=== PATIENT | female | born 1970 | race Caucasian/White ===

== ENCOUNTER 2018-05-19 19:34 | Inpatient (IN) | payer BC ==
[~2018-05-19] VITALS: Ht 157.5 cm; Wt 89.4 kg
--- OUTSIDE RECORDS SUMMARY | 2018-05-19 19:36 | XMS REPORT | Continuity of Care Document ---
Author Author [facility] Address Unknown Phone Unavailable Problems Problem Status Onset Date Classification Date Reported Comments Source DX: R92.8=OTHER ABNORMAL AND INCONCLUSI Active 05/23/2017 [facility] DX: R92.8=/R92.2=/R92.0= Active 05/30/2016 [facility] BENIGN NEOPLASM OF BREAST Active 12/24/2013 Condition 02/26/2014 [facility] Benign tumor of breast<sup>2</sup> Active 12/24/2013 Problem 06/10/2017 Data migrated from [employer] on 12/08/14. [facility] Adenoma<sup>1</sup> Active Problem 06/10/2017 right breast [facility] Anxiety Active Problem 06/10/2017 [facility] GERD (<span ID="[id number]">Confirmed</span>) Active Problem 06/10/2017 [facility] Hypertension Active Problem 06/10/2017 [facility] Medications Medication Details Route Status Patient Instructions Ordering Provider Order Date Source NEXIUM 40 MG CPDR Active 12/24/2013 [facility] STRATTERA 80 MG CAPS Active 12/24/2013 [facility] WELLBUTRIN XL 300 MG [id number] Active 12/24/2013 [facility] ZYRTEC ALLERGY TABS Active 12/24/2013 [facility] NEXIUM 40 MG CPDR Active 12/24/2013 [facility] WELLBUTRIN XL 300 MG [id number] Active 12/24/2013 [facility] Allergies, Adverse Reactions, Alerts Substance Category Reaction Severity Reaction type Status Date Reported Comments Source NKFA Assertion Propensity to adverse reactions to food Active [facility] Immunizations Immunization Date Given Site Status Last Updated Comments Source Results Order Name Results Value Reference Range Date Interpretation Comments Source Breast Mammo Diag WILY incl CAD MA Breast Mammo Diag WILY incl CAD MA CLINICAL: /12 Mo Follow Up bilateral breast reduction and benign tumor removal. Current study was evaluated with a Computer Aided Detection (CAD) system. COMPARISON:Comparison is made to exams dated: 06/15/2016 mammogram, 05/31/2015 mammogram, 11/24/2013 mammogram, 10/15/2012 mammogram, 05/31/2015 ultrasound, and 02/16/2014 localization - [facility]. TECHNIQUE: Mammographic views were obtained using digital acquisition. [employer] Version 1.3 was utilized for computer aided detection. FINDINGS: The tissue of both breasts is heterogeneously dense, which could obscure detection of small masses. The patient is status post reduction both breasts. Both breasts have post- operative findings. There are benign calcifications in both breasts. No significant masses, calcifications, or other findings are seen in either breast. There has been no significant interval change. Breast ultrasound was offered to the patient but was declined. IMPRESSION: BENIGN There is no mammographic evidence of malignancy. A 1 year screening mammogram is recommended.(06/08/2018) The results were reviewed with the patient. This exam was interpreted at [id number] for [facility]. Geraldine Marquis M.D. jt/:06/07/2017 16:17:41 Hammerer Tab(s): Jazmin Bacon [facility] letter sent: BI-RADS 1/2 Mammogram BI-RADS: 2 Benign 06/07/2017 - - Read by: Geraldine Marquis MD Dictated Date/time: 06/07/17 16:17 Electronically Signed by: Geraldine Marquis MD 06/07/17 16:17 FINAL REPORT [facility] Digital Mammo DX Wily MA Digital Mammo DX Wily MA - DIGITAL MAMMO DX WILY MA BILATERAL DIGITAL DIAGNOSTIC MAMMOGRAM WITH CAD: 06/15/2016 CLINICAL: Right breast benign tumor removal bilateral breast reduction. Current study was evaluated with a Computer Aided Detection (CAD) system. Comparison is made with mammogram(s) dated 05/31/15 - 08/30/06. The tissue of both breasts is heterogeneously dense, which could obscure detection of small masses. The patient is status post reduction both breasts. Both breasts have post- operative findings. There are benign calcifications in both breasts. No significant masses, calcifications, or other findings are seen in either breast. There has been no significant interval change. Breast ultrasound was offered to the patient but was declined. IMPRESSION: BENIGN There is no mammographic evidence of malignancy. A 1 year screening mammogram is recommended. The results were reviewed with the patient. Geraldine munoz/:06/15/2016 16:19:44 Hammerer Tab: Jazmin Bacon [facility] This exam was dictated and interpreted by [id number] for [facility] [employer]. letter sent: Normal exam Mammogram BI-RADS: 2 Benign 06/15/2016 - - Read by: Geraldine Marquis MD Dictated Date/time: 06/15/16 16:19 Electronically Signed by: Geraldine Marquis MD 06/15/16 16:19 FINAL REPORT [facility] Vital Signs Vital Sign Value Date Comments Source Weight 166 02/26/2014 [facility] Temperature Oral (F) 98.3 F 02/26/2014 [facility] Heart Rate 108 02/26/2014 [facility] Systolic (mm Hg) 140 02/26/2014 [facility] Diastolic (mm Hg) 93 02/26/2014 [facility] Height 62 12/24/2013 [facility] Weight 168 12/24/2013 [facility] Temperature Oral (F) 97.7 F 12/24/2013 [facility] Heart Rate 123 12/24/2013 [facility] Systolic (mm Hg) 161 12/24/2013 [facility] Diastolic (mm Hg) 97 12/24/2013 [facility] Encounters Location Location Details Encounter Type Encounter Number Reason For Visit Attending Provider ADM Date DC Date Status Source [facility] General Surgery 350 Office Visit [id number] Will Mar MD 12/24/2013 12/24/2013 [facility] [place] Lab Report [id number] Will Mar MD 12/25/2013 12/25/2013 [facility] Lab Report [id number] Will Mar MD 02/12/2014 02/12/2014 [facility] General Surgery 350 Office Visit [id number] Will Mar MD 02/26/2014 02/26/2014 [facility] Outpatient [id number] Flaca Zhang 06/15/2016 06/16/2016 [facility] Outpatient [id number] Kami Szymanski 06/07/2017 06/08/2017 [facility] Procedures Procedure Code Date Perfomer Comments Source mammogram 91152 02/20/2014 Completed at [facility] Breast reduction, bilateral [id number] [facility] Epidural anesthesia<sup>1</sup> [id number] [address]
--- OUTSIDE RECORDS SUMMARY | 2018-05-19 19:36 | XMS REPORT | Summary of Care ---
Author Author SUNNI Feldman, MAURICIO Antunez Unknown Address [facility] Phone Unavailable Care Team Providers Care Cereal Supervisor Name Role Phone SUNNI Feldman, MAURICIO Unavailable Unavailable KENNEDI Feldman, PREET Unavailable Unavailable JAME Feldman, PRICILA Unavailable Unavailable KENNEDI BOLAND ID, PREET Silvestre Unavailable Unavailable JULIA Feldman, MONISHA Unavailable Unavailable Cheryl BOLAND, Zachary Unavailable Unavailable TRAN BOLAND, ALFREDO James Unavailable Unavailable Unavailable Unavailable Functional Status Name Dates Details Functional status health issues are not documented Status: Name Dates Details Cognitive status health issues are not documented Status: Problems Name Dates Details Rosacea (695.3, L71.9) Status: Active Encounter for screening for lipoid disorders (V77.91, Z13.220) Status: Active 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, 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 Generalized anxiety disorder (300.02, F41.1) Status: Active Hiatal hernia (553.3, K44.9) Status: Active Nasal septal deviation (470, J34.2) Status: Active Hypertrophy, nasal, turbinate (478.0, J34.3) Status: Active Encounter for routine gynecological examination with Papanicolaou smear of cervix (V72.31, Z01.419) Status: Active Screening for malignant neoplasm of breast (V76.10, Z12.31) Status: Active Cervical cancer screening (V76.2, Z12.4) Status: Active Right foot pain (729.5, M79.671) Status: Active Migraines (346.90, G43.909) Status: Active Breast density (611.79, R92.2) Status: Active Breast microcalcifications (793.81, R92.0) Status: Active 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, M19.049) Status: Active Hot flashes (782.62, R23.2) Status: Active Acid reflux disease (530.81, K21.9) Status: Active Influenza vaccine needed (V04.81, Z23) Status: Active Abnormal mammogram (793.80, R92.8) Status: Active Anxiety (300.00, F41.9) Status: Active Attention-deficit hyperactivity disorder, unspecified type (314.01, F90.9) Status: Active PMDD (premenstrual dysphoric disorder) (625.4, F32.81) Status: Active Essential (primary) hypertension (401.9, I10) Status: Active Major depression, recurrent, chronic (296.30, F33.9) Status: Active GERD (gastroesophageal reflux disease) (530.81, K21.9) Status: Active Acute nonintractable headache, unspecified headache type (784.0, R51) Status: Active Seasonal allergic rhinitis due to pollen (477.0, J30.1) Status: Active Uncontrolled hypertension (401.9, I10) Status: Active Medications Name Dates Details Fluticasone Propionate 50 MCG/ACT Nasal Suspension USE 2 SPRAYS IN EACH NOSTRIL ONCE DAILY Quantity: 1 PREET KOLB M.D. Active 9.9 ML Bottle Multiple Vitamin TABS TAKE 1 TABLET DAILY. * Refills: 0 Active Magnesium TABS TAKE 1 TABLET DAILY * Refills: 0 Active Fish Oil CAPS TAKE 1 CAPSULE DAILY * Refills: 0 Active Vitamin C TABS TAKE 1 TABLET DAILY * Refills: 0 Active Vitamin D TABS TAKE 1 TABLET DAILY * Refills: 0 Active Losartan Potassium-HCTZ 100-25 MG Oral Tablet TAKE 1 TABLET ONCE DAILY. * Quantity: 90 Refills: 1 PREET KOLB M.D. * Start : 18-May-2014 Active Omeprazole 40 MG Oral Capsule Delayed Release TAKE 1 CAPSULE Twice daily 30 minutes before meals * Quantity: 180 Refills: 1 PREET KOLB M.D. * Start : 11-Jun-2014 Active Sertraline HCl - 50 MG Oral Tablet TAKE 1 TABLET BY MOUTH DAILY * Quantity: 90 Refills: 0 PRICILA KILGORE M.D. * Start : 28-Nov-2017 Active Dexmethylphenidate HCl ER 20 MG Oral Capsule Extended Release 24 Hour TAKE 1 CAPSULE DAILY IN THE MORNING. * Quantity: 30 Refills: 0 PRICILA KILGORE M.D. * Start : 19-Dec-2016 Active Azelastine HCl - 0.1 % Nasal Solution USE 1 SPRAY IN EACH NOSTRIL TWICE DAILY. * Quantity: 1 Refills: 2 PREET KOLB M.D. * Start : 25-Dec-2017 Active 30 ML Bottle Allergies and Adverse Reactions Name Dates Details No Known Drug Allergies (Allergy) Status: Active Past Medical History Name Dates Details History of acne (V13.3, Z87.2) Status: Resolved History of backache (V13.59, Z87.39) Status: Resolved History of chest pain (V13.89, Z87.898) Status: Resolved History of earache (V12.49, Z86.69) Status: Resolved History of essential hypertension (V12.59, Z86.79) Status: Resolved History of Impacted cerumen of left ear (380.4, H61.22) Status: Resolved History of Mass of right breast (611.72, N63.10) Status: Resolved History of Masses of both breasts (611.72, N63.10) Status: Resolved History of Multiparity (V61.5, Z64.1) Status: Resolved History of Pain, joint, shoulder (719.41, M25.519) Status: Resolved History of Vitamin D insufficiency (268.9, E55.9) Status: Resolved Personal history of urinary tract infection (V13.02, Z87.440) Status: Resolved Procedures Procedure Dates Details History of Breast Surgery Lumpectomy Completed History of Breast Surgery Reduction Procedure Completed Immunization Name Dates Details Tdap on: Jul-2010 Influenza Lot #: [id number] on: 14-Apr-2014 Fluzone Quadrivalent 0.5 ML Intramuscular Suspension Lot #: [id number] on: 12-May-2015 Fluzone Quadrivalent 0.5 ML Intramuscular Suspension Lot #: [id number] on: 17-Apr-2017 Family History Name Dates Details Family history of Smoking Cigarettes Status: Active Family history of Hyperlipidemia Status: Active Name Dates Details Family history of Smoking Cigarettes Status: Active Family history of Acute Lymphoma Status: Active Family history of Hyperlipidemia Status: Active Family history of Hypertension (V17.49) Status: Active Social History Name Dates Details - Status: Name Dates Details Never smoker Vital Signs Date Test Result Details [id number]-[id number] BP Systolic 117 mm[Hg] Status: BP Diastolic 84 mm[Hg] Status: Height 62 in Status: Weight 190.4375 lb Status: Body Mass Index Calculated 34.83 kg/m2 Status: Body Surface Area Calculated 1.87 m2 Status: Heart Rate 112 /min Status: [id number]-Atv-[id number]:26 Physical Findings 5 Status: Comments: PHQ-9 Adult Depression Screening 69-Utk-606052:11 BP Systolic 130 mm[Hg] Status: Comments: Location: LUE; Position: Sitting BP Diastolic 88 mm[Hg] Status: Comments: Location: LUE; Position: Sitting Height 62 in Status: Weight 193.125 lb Status: Body Mass Index Calculated 35.32 kg/m2 Status: Body Surface Area Calculated 1.88 m2 Status: Heart Rate 83 /min Status: Physical Findings 5 Status: Comments: PHQ-9 Adult Depression Screening Temperature 98.2 f Status: Comments: Method: Temporal Respiration Rate 16 /min Status: Physical Findings 6.4375 Status: Comments: Pain Scale Results Date Description Value Details Results not documented Plan of Care Name Dates Details Planned Observations Planned Goals not documented Planned Encounters Appointment; PRICILA KILGORE M.D. On: 06-Feb-2018 12:00 Interventions Provided Plan* 1. TMJ problem. Needs soft diet, NSAIDS and warm compresses. FU as needed. Instructions Name Dates Details Instructions not documented Encounters Appointment; PREET KOLB M.D. Encounter Diagnosis: Problem not documented On: 18-Jan-2016 10:15 Appointment; LIZETH JENKINS M.D. Encounter Diagnosis: Problem not documented On: 20-Jan-2016 11:30 Appointment; PRICILA KILGORE M.D. Encounter Diagnosis: Problem not documented On: 23-May-2016 15:00 Appointment; PRICILA KILGORE M.D. Encounter Diagnosis: Problem not documented On: 21-Aug-2016 15:30 Appointment; PREET KOLB M.D. Encounter Diagnosis: Problem not documented On: 07-Sep-2016 15:30 Appointment; PREET KOLB M.D. Encounter Diagnosis: Problem not documented On: 09-Oct-2016 15:45 Appointment; PRICILA KILGORE M.D. Encounter Diagnosis: Problem not documented On: 19-Dec-2016 10:00 Appointment; PRICILA KILGORE M.D. Encounter Diagnosis: Problem not documented On: 07-Feb-2017 10:00 Appointment; PRICILA KILGORE M.D. Encounter Diagnosis: Problem not documented On: 16-Apr-2017 15:30 Appointment; PREET KOLB M.D. Encounter Diagnosis: Problem not documented On: 17-Apr-2017 15:45 Appointment; PRICILA KILGORE M.D. Encounter Diagnosis: Problem not documented On: 05-Sep-2017 15:30 Appointment; PRICILA KILGORE M.D. Encounter Diagnosis: Problem not documented On: 26-Nov-2017 15:30 Appointment; PREET KOLB M.D. Encounter Diagnosis: Problem not documented On: 25-Dec-2017 14:45 Appointment; MAURICIO MOELLER M.D. Encounter Diagnosis: Problem not documented On: 01-Jan-2018 13:45
--- OUTSIDE RECORDS SUMMARY | 2018-05-19 19:36 | XMS REPORT | Continuity of Care Document ---
Author Author [facility] Organization [facility] Address Unknown Phone Unavailable Care Team Providers Care Coat Presser Name Role Phone MD Zaid, Will ZABALA Unavailable Insurance Providers Payer name Policy type / Coverage type Policy ID Covered democrat ID Policy Alvarado [employer] Encounters Encounter Performer Location Date Office Visit Will Mar MD [facility] General Surgery 350 Feb 26, 2014 Problems Problem Effective Dates Problem Status BENIGN NEOPLASM OF BREAST Dec 24, 2013 Active Procedures Date Description Comments Dec 24, 2013 smoking status Never smoker Feb 20, 2014 mammogram Completed at [facility] Feb 26, 2014 smoking status Never smoker Medications Medication Instructions Start Date Status NEXIUM 40 MG CPDR Dec 24, 2013 Active STRATTERA 80 MG CAPS Dec 24, 2013 Active WELLBUTRIN XL 300 MG [id number] Dec 24, 2013 Active ZYRTEC ALLERGY TABS Dec 24, 2013 Active Vital Signs Date Description Test Result Dec 24, 2013 height E&M HEIGHT 62 in Dec 24, 2013 weight E&M WEIGHT 168 lb Dec 24, 2013 temperature E&M TEMPERATURE 97.7 deg f Dec 24, 2013 pulse rate E&M PULSE RATE 123 /min Dec 24, 2013 blood pressure, systolic BP SYSTOLIC 161 mm Hg Dec 24, 2013 blood pressure, diastolic BP DIASTOLIC 97 mm Hg Feb 26, 2014 weight E&M WEIGHT 166 lb Feb 26, 2014 temperature E&M TEMPERATURE 98.3 deg f Feb 26, 2014 pulse rate E&M PULSE RATE 108 /min Feb 26, 2014 blood pressure, systolic BP SYSTOLIC 140 mm Hg Feb 26, 2014 blood pressure, diastolic BP DIASTOLIC 93 mm Hg
--- OUTSIDE RECORDS SUMMARY | 2018-05-19 19:36 | XMS REPORT | Summary of Care ---
Author Author [facility] Organization [facility] Address Unknown Phone Unavailable Encounter HQ Mary(FIN) [id number] Date(s): 06/15/16 - 06/15/16 [facility] [address] [place] [address]- [phone] Discharge Disposition: Home or Self Care Attending Physician: Flaca Zhang MD Referring Physician: Flaca Zhang MD Vital Signs No data available for this section Problem List Condition Effective Dates Status Health Status Informant Adenoma(Confirmed)1 Active Anxiety(Confirmed) Active Benign tumor of 12/24/13 Active breast2 GERD Active (gastroesophageal reflux disease)(Confirmed) Hypertension(Confirm Active ed) 1right breast 2Data migrated from [employer] on 12/08/14. Allergies, Adverse Reactions, Alerts Substance Reaction Severity Status NKDA Active NKFA Active Medications No data available for this section Results No data available for this section Immunizations No data available for this section Procedures Procedure Date Related Diagnosis Body Site Breast reduction, bilateral Epidural anesthesia1 [id number] Social History Social History Type Response Alcohol Previous treatment: None. Smoking Status Never smoker; Exposure to Tobacco Smoke None; Cigarette Smoking Last 365 Days No; Reg Smoking Cessation Counseling Yes Assessment and Plan No data available for this section
--- OUTSIDE RECORDS SUMMARY | 2018-05-19 19:36 | XMS REPORT | Continuity of Care Document ---
Author Author [facility] Organization [facility] Address Unknown Phone Unavailable Care Team Providers Care Continuous Loft Operator Name Role Phone MD Zaid, Will PP Unavailable Insurance Providers Payer name Policy type / Coverage type Policy ID Covered republican ID Policy Alvarado [employer] Encounters Encounter Performer Location Date Lab Report Will Mar MD [facility] [place] Dec 25, 2013 Vital Signs Date Description Test Result Dec [...]
--- OUTSIDE RECORDS SUMMARY | 2018-05-19 19:36 | XMS REPORT | Continuity of Care Document ---
Author Author [facility] Organization [facility] Address Unknown Phone Unavailable Care Team Providers Care Heel Dipper Name Role Phone MD Zaid, Will ZABALA Unavailable Insurance Providers Payer name Policy type / Coverage type Policy ID Covered republican ID Policy Alvarado [employer] Encounters Encounter Performer Location Date Lab Report Will Mar MD [facility] Feb 12, 2014 Problems Problem Effective Dates Problem Status BENIGN NEOPLASM OF BREAST Dec 24, 2013 Active Procedures Date Description Comments Dec 24, 2013 smoking status Never smoker Medications Medication Instructions Start Date Status NEXIUM 40 MG CPDR Dec 24, 2013 Active STRATTERA 80 MG CAPS Dec 24, 2013 Active WELLBUTRIN XL 300 MG [id number] Dec 24, 2013 Active ZYRTEC ALLERGY TABS [...]
--- OUTSIDE RECORDS SUMMARY | 2018-05-19 19:36 | XMS REPORT | Summary of Care ---
Author Author [facility] Organization [facility] Address Unknown Phone Unavailable Encounter RUBÉN Hernandez(TRISTON) [id number] Date(s): 06/07/17 - 06/07/17 [facility] [address] [place] [address]- Discharge Disposition: Home or Self Care Attending Physician: Kami Szymanski MD Referring Physician: Kami Szymanski MD Vital Signs No data available for this section Problem List Condition Effective Dates Status Health Status Informant Adenoma(Confirmed)1 Active Anxiety(Confirmed) Active Benign tumor of 12/24/13 Active breast2 GERD Active (gastroesophageal reflux disease)(Confirmed) Hypertension(Confirm Active ed) 1right breast 2Data migrated from [employer] on 12/08/14. Allergies, Adverse Reactions, Alerts Substance Reaction Severity Status NKFA Active NKDA Active Medications No data available for this section Results No data available for this section Immunizations No data available for this section Procedures Procedure Date Related Diagnosis Body Site Breast reduction, bilateral Epidural anesthesia1 [id number] Social History Social History Type Response Alcohol Previous treatment: None. Smoking Status Never smoker; Exposure to Tobacco Smoke None; Cigarette Smoking Last 365 Days No; Reg Smoking Cessation Counseling Yes Assessment and Plan No data available for this section
--- OUTSIDE RECORDS SUMMARY | 2018-05-19 19:36 | XMS REPORT | Continuity of Care Document ---
Author Author [facility] Organization [facility] Address Unknown Phone Unavailable Care Team Providers Care Clerk Of Superior Court Name Role Phone MD Zaid, Will ZABALA Unavailable Insurance Providers Payer name Policy type / Coverage type Policy ID Covered republican ID Policy Alvarado [employer] Encounters Encounter Performer Location Date Office Visit Will Mar MD [facility] General Surgery 350 Dec 24, 2013 Problems Problem Effective Dates Problem Status BENIGN NEOPLASM OF BREAST Dec 24, 2013 Active Procedures Date Description Comments Dec 24, 2013 smoking status Never smoker Medications Medication Instructions Start Date Status NEXIUM 40 MG CPDR Dec 24, 2013 Active STRATTERA 80 MG CAPS Dec 24, 2013 Active WELLBUTRIN XL 300 MG [id number] Dec 24, 2013 Active ZYRTEC ALLERGY TABS [...]
[2018-05-19] MEDS ORDERED: SODIUM CHLORIDE 0.9% 1000ML 1,000 ML IV STA (20:11)
[2018-05-19] MEDS ORDERED: ONDANSETRON HCL INJ 2 MG/ML VIAL IV STA (20:11)
[2018-05-19] MEDS ORDERED: HYOSCYAMINE SULFATE 0.5 MG/ML INJ IV ONE (20:15)
[2018-05-19] MEDS ORDERED: DIATRIZOATE MEGL/DIATRIZOA SOD 30 ML BTL PO ONE (20:19)
[2018-05-19] MEDS ORDERED: IBUPROFEN 600 MG TAB PO STA (20:19)
[2018-05-19 20:38] LABS: BASOPHILS # (AUTO) 0.1 (0.0-0.1); BASOPHILS % 0.4 % (0.0-1.0); EOSINOPHILS # (AUTO) 0.1 (0.0-0.4); EOSINOPHILS % 0.4 % (0.0-6.0); HEMATOCRIT 40.3 % (34.2-44.1); LYMPHOCYTES # (AUTO) 2.8 (1.0-3.2); LYMPHOCYTES % 13.5 % (18.0-39.1); MEAN CORPUSCULAR HEMOGLOBIN 32.3 pg (28-32); MEAN CORPUSCULAR HGB CONC 34.7 g/dL (31-35); MEAN CORPUSCULAR VOLUME 93.1 fL (81-99); MONOCYTES % 4.6 % (4.4-11.3); NEUTROPHILS % 80.5 % (38.7-80.0); PLATELET COUNT 439 x10e3/uL (140-360); RED BLOOD COUNT 4.33 x10e6/uL (3.6-5.1); RED CELL DISTRIBUTION WIDTH 12.2 % (11.7-14.4)
[2018-05-19 21:07] LABS: ALANINE AMINOTRANSFERASE 86 IU/L (0-55); ALBUMIN 3.7 g/dL (3.5-5.0); ALBUMIN/GLOBULIN RATIO 0.9 (0.8-2.0); ALKALINE PHOSPHATASE 72 IU/L (40-150); BLOOD UREA NITROGEN 9 mg/dL (7-26); BUN/CREATININE RATIO 12 (6-25); CALCIUM 10.5 mg/dL (8.4-10.2); CARBON DIOXIDE 26 mmol/L (22-29); CHLORIDE 98 mmol/L (98-107); CREATININE, SERUM 0.74 mg/dL (0.57-1.11); EST GLOMERULAR FILTRATION RATE > 60 ML/MIN (60-); GLUCOSE 107 mg/dL (74-118); LIPASE 21 U/L (8-78); SODIUM 135 mmol/L (136-145)
[2018-05-19 21:14] LABS: BILIRUBIN,URINE NEGATIVE (NEGATIVE); CLARITY,URINE CLEAR (CLEAR); COLOR,URINE YELLOW (YELLOW); KETONES,URINE NEGATIVE (NEGATIVE); LEUKOCYTE ESTERASE ,URINE NEGATIVE (NEGATIVE); NITRITE,URINE NEGATIVE (NEGATIVE); PROTEIN,URINE DIPSTICK NEGATIVE (NEGATIVE); URINE UROBILINOGEN 0.2 mg/dL (0.2 - 1)
[2018-05-19 21:22] LABS: BACTERIA,URINE RARE /HPF; EPITHELIAL CELLS,URINE FEW /LPF; PREGNANCY TEST, URINE NEGATIVE (NEGATIVE); RBC,URINE 0-5 /HPF (0-5); WBC,URINE (MAN) 0-5 /HPF (0-5)
[2018-05-19] MEDS ORDERED: METRONIDAZOLE 500MG/NS 100ML 100 ML IV ONE (21:45)
[2018-05-19] MEDS ORDERED: LEVOFLOXACIN 500MG/D5W 100ML 100 ML IV ONE (21:45)
--- NOTE | 2018-05-19 22:04 | Diagnostic Imaging Report ---
EXAM: CT Abdomen and Pelvis WITH contrast INDICATION: Abdominal pain, nausea ^abd pain r/o divertic sbo pyelo etc ^[id number] ^2114 COMPARISON: None. TECHNIQUE: Abdomen and pelvis were scanned utilizing a multidetector helical scanner from the lung base to the pubic symphysis after administration of IV contrast. Coronal and sagittal reformations were obtained. Routine protocol was performed. Scan was performed during portal venous phase. IV CONTRAST: 100 mL of Isovue-370 ORAL CONTRAST: Water COMPLICATIONS: None RADIATION DOSE: Total DLP: 791.7 mGy*cm Estimated effective dose: (DLP x 0.015 x size factor) mSv CTDIvol has been reviewed. It is below the limits set by the Radiation Protocol Committee (RPC). Dose modulation, iterative reconstruction, and/or weight based adjustment of the mA/kV was utilized to reduce the radiation dose to as low as reasonably achievable. FINDINGS: LINES and TUBES: None. LOWER THORAX: Unremarkable HEPATOBILIARY: Hepatic steatosis. No focal hepatic lesions. No biliary ductal dilation. GALLBLADDER: No radio-opaque stones or sludge. No wall thickening. SPLEEN: No splenomegaly. PANCREAS: No focal masses or ductal dilatation. ADRENALS: No adrenal nodules KIDNEYS/URETERS: Kidneys enhance symmetrically. No hydronephrosis. No cystic or solid mass lesions. No stones. GI TRACT: Numerous colonic diverticula throughout the transverse descending and sigmoid colon. Peridiverticular wall thickening and stranding in the sigmoid colon without free air or abscess. Appendix is not clearly identified. There is however no fat stranding or adenopathy in the right lower quadrant to suggest appendicitis. PELVIC ORGANS/BLADDER: Left ovarian 2.3 cm low attenuating lesion measures slightly greater than fluid density at 22 Hounsfield units, likely a cyst with mild hemorrhage. Otherwise, unremarkable. LYMPH NODES: No lymphadenopathy. VESSELS: Unremarkable. PERITONEUM / RETROPERITONEUM: No free air or fluid. BONES: There are degenerative changes in the lumbar spine. Scattered bone islands. SOFT TISSUES: Unremarkable. IMPRESSION: Sigmoid colonic diverticulitis without abscess or perforation. Signed by: DR. Kane Heard MD on 05/19/2018 10:01 PM
[2018-05-19] MEDS ORDERED: IOPAMIDOL 370 MG/ML 200 ML INFUS..BTL INJ ONE (23:13)
[2018-05-19] MEDS ORDERED: SODIUM CHLORIDE 0.9% 50ML 50 ML ONE (23:13)
[2018-05-19] MEDS ORDERED: HYDROMORPHONE 1MG/1ML INJ IV PRN (23:45)
[2018-05-19] MEDS ORDERED: ACETAMINOPHEN 1000 MG/100 ML IV PRN (23:45)
[2018-05-19] MEDS ORDERED: ONDANSETRON HCL INJ 2 MG/ML VIAL IV PRN (23:45)
[2018-05-19] MEDS ORDERED: LEVOFLOXACIN 500MG/D5W 100ML IV SCH (23:45)
--- OUTSIDE RECORDS SUMMARY | 2018-05-19 23:57 | XMS REPORT ---
[facility] Address Unknown Phone Unavailable Care Team Providers [employer] Name Role Phone Curry CANNON Unavailable Unavailable Problems This patient has no known problems. Allergies, Adverse Reactions, Alerts This patient has no known allergies or adverse reactions. Medications This patient has no known medications. 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 TECHNIQUE: Abdomen and pelvis were scanned utilizing a multidetector helical scanner from the lung base to the pubic symphysis after administration of IV contrast. Coronal and sagittal reformations were obtained. Routine protocol was performed. Scan was performed during portal venous phase. IV CONTRAST: 100 mL of Isovue-370 ORAL CONTRAST: Water COMPLICATIONS: None RADIATION DOSE: Total DLP: 791.7 mGy*cm Estimated effective dose: (DLP x 0.015 x size factor) mSv CTDIvol has been reviewed. It is below the limits set by the Radiation Protocol Committee (RPC). Dose modulation, iterative reconstruction, and/or weight based adjustment of the mA/kV was utilized to reduce the radiation dose to as low as reasonably achievable. FINDINGS: LINES and TUBES: None. LOWER THORAX: Unremarkable HEPATOBILIARY: Hepatic steatosis. No focal hepatic lesions. No biliary ductal dilation. GALLBLADDER: No radio-opaque stones or sludge. No wall thickening. SPLEEN: No splenomegaly. PANCREAS: No focal masses or ductal dilatation. ADRENALS: No adrenal nodules KIDNEYS/URETERS: Kidneys enhance symmetrically. No hydronephrosis. No cystic or solid mass lesions. No stones. GI TRACT: Numerous colonic diverticula throughout the transverse descending and sigmoid colon. Peridiverticular wall thickening and stranding in the sigmoid colon without free air or abscess. Appendix is not clearly identified. There is however no fat stranding or adenopathy in the right lower quadrant to suggest appendicitis. PELVIC ORGANS/BLADDER: Left ovarian 2.3 cm low attenuating lesion measures slightly greater than fluid density at 22 Hounsfield units, likely a cyst with mild hemorrhage. Otherwise, unremarkable. LYMPH NODES: No lymphadenopathy. VESSELS: Unremarkable. PERITONEUM / RETROPERITONEUM: No free air or fluid. BONES: There are degenerative changes in the lumbar spine. Scattered bone islands. SOFT TISSUES: Unremarkable. IMPRESSION: Sigmoid colonic diverticulitis without abscess or perforation. Signed by: DR. Kane Echavarria MD on 05/19/2018 10:01 PM Dictated By: KANE ECHAVARRIA MD 00 Transcribed By: SHIVANI on 05/19/182200 COPY TO: NARCISA LATIF NP
[2018-05-20] MEDS ORDERED: METRONIDAZOLE 500MG/NS 100ML 100 ML IV SCH
[2018-05-20] MEDS ORDERED: SODIUM CHLORIDE 0.9% 1000ML 1,000 ML ONE ×2 (01:44→05:41)
[2018-05-20] MEDS ORDERED: HYOSCYAMINE SULFATE 0.5 MG/ML INJ IV ONE (01:45)
[2018-05-20] MEDS ORDERED: LEVOFLOXACIN 500MG/D5W 100ML 100 ML IV ONE (01:45)
[2018-05-20] MEDS ORDERED: METRONIDAZOLE 500MG/NS 100ML 100 ML IV ONE (01:45)
[2018-05-20] MEDS: SODIUM CHLORIDE 0.9% 1000ML 1,000 ML IV SCH ×4 (03:59→23:33)
[2018-05-20 05:16] LABS: BASOPHILS # (AUTO) 0.1 (0.0-0.1); BASOPHILS % 0.3 % (0.0-1.0); EOSINOPHILS # (AUTO) 0.1 (0.0-0.4); EOSINOPHILS % 0.7 % (0.0-6.0); HEMOGLOBIN 12.3 g/dL (12.0-16.0); LYMPHOCYTES # (AUTO) 2.7 (1.0-3.2); LYMPHOCYTES % 15.3 % (18.0-39.1); MEAN CORPUSCULAR HEMOGLOBIN 32.1 pg (28-32); MEAN CORPUSCULAR HGB CONC 34.2 g/dL (31-35); MONOCYTES % 5.7 % (4.4-11.3); NEUTROPHILS # (AUTO) 13.7 (2.1-6.9); NEUTROPHILS % 77.4 % (38.7-80.0); PLATELET COUNT 356 x10e3/uL (140-360); RED BLOOD COUNT 3.83 x10e6/uL (3.6-5.1); RED CELL DISTRIBUTION WIDTH 12.3 % (11.7-14.4)
[2018-05-20 05:38] LABS: ALANINE AMINOTRANSFERASE 68 IU/L (0-55); ALBUMIN 3.2 g/dL (3.5-5.0); ALBUMIN/GLOBULIN RATIO 0.9 (0.8-2.0); ALKALINE PHOSPHATASE 62 IU/L (40-150); BLOOD UREA NITROGEN 8 mg/dL (7-26); BUN/CREATININE RATIO 12 (6-25); CALCIUM 9.3 mg/dL (8.4-10.2); CARBON DIOXIDE 24 mmol/L (22-29); CHLORIDE 101 mmol/L (98-107); CREATININE, SERUM 0.67 mg/dL (0.57-1.11); EST GLOMERULAR FILTRATION RATE > 60 ML/MIN (60-); GLUCOSE 112 mg/dL (74-118); SODIUM 135 mmol/L (136-145)
[2018-05-20] MEDS ORDERED: SODIUM CHLORIDE 0.9% 1000ML 1,000 ML IV ONE (05:45)
[2018-05-20] MEDS: PANTOPRAZOLE 40 MG 10ML VIAL IV SCH (08:59)
[2018-05-20] MEDS: METRONIDAZOLE 500MG/NS 100ML 100 ML IV SCH ×3 (08:59→20:18)
[2018-05-20] MEDS ORDERED: LOSARTAN-HCTZ1 EAC1 PO (09:19)
[2018-05-20] MEDS ORDERED: OMEPRAZOLE40 MG PO (11:22)
[2018-05-20] MEDS ORDERED: SERTRALINE HCL50 MG PO (11:22)
[2018-05-20] MEDS ORDERED: FOCALIN10 MG PO (11:22)
[2018-05-20] MEDS ORDERED: LOSARTAN POTASSIUM 100 MG TAB PO SCH (11:30)
--- NOTE | 2018-05-20 13:23 | History and Physical ---
CLINICAL HISTORY: This is a 48-year-old white woman seen in the emergency room at [facility] because of diverticulitis of 1-week duration. Approximately 8 years ago she had the same but not as severe, treated with oral antibiotics and did not require hospitalization. This time she had crampy abdominal pains for 1 week, finally got so sick she has decided to come to the emergency room. In the emergency room, her white count was 21,000 and she had a fever of 100 degrees Fahrenheit. Blood pressure was 107/78. A CT scan showed diverticulitis. She is being admitted for intravenous antibiotics. PAST MEDICAL HISTORY: Remarkable for a breast reduction, hypertension, depression, indigestion. MEDICATIONS: At home are losartan-hydrochlorothiazide, omeprazole, sertraline and another depression medication. PERSONAL AND SOCIAL HISTORY: She denies smoking or drinking. 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 FAMILY HISTORY: Father had lymphoma due to radiation exposure. Mother is healthy. She has no siblings. REVIEW OF SYSTEMS: Negative. PHYSICAL EXAMINATION: GENERAL: She is obese, alert, coherent. Appears comfortable. CARDIAC: Jugular veins are not distended. S1 and S2 are regular, distant. RESPIRATORY: Clear. ABDOMEN: Soft. There is tenderness in the left lower quadrant, minimal tenderness of right lower quadrant. EXTREMITIES: Showed no cyanosis, clubbing or edema. LABORATORY STUDIES: As mentioned. IMPRESSION: 1. Acute left lower quadrant diverticulitis of 1-week duration with sepsis. 2. Hypertension. 3. Reflux esophagitis. 4. Depression. RECOMMENDATIONS: GI consultation. Intravenous antibiotics. Job#: [id number] EV cc:MD DR. KENNEDI ACEVES
--- NOTE | 2018-05-20 19:45 | Consultation ---
DATE OF CONSULTATION: May 20, 2018 HISTORY OF PRESENT ILLNESS: This is a 48-year-old who has not much medical problem except hypertension, depression and acid reflux, presented to the hospital because of abdominal pain mainly in the left lower quadrant area, cramping in nature. The patient was constipated initially and her workup revealed that she has leukocytosis with WBC 21,[address] scan show acute sigmoid diverticulitis with abscess or perforation. She thought that she had similar episode about 8 years or so ago, but she never had any colonoscopy. OTHER MEDICAL PROBLEM: Diabetes mellitus, hypertension, history of depression, history of heartburn, status post breast reduction. MEDICATIONS AT HOME: Include losartan, hydrochlorothiazide, omeprazole, sertraline and some antidepressant. ALLERGIES: NONE. SOCIAL HISTORY: No alcohol use. FAMILY HISTORY: Noncontributory. REVIEW OF SYSTEMS: Denies any chest pain or shortness of breath. Denies any dysphagia or odynophagia. Denies any dysuria, hematuria or any kind of syncopal episode. PHYSICAL EXAMINATION GENERAL: Awake, alert, appears to be stable and not in any acute distress. VITAL SIGNS: Afebrile currently with stable vital signs. HEENT: Normocephalic, atraumatic. Sclerae anicteric. NECK: Supple. HEART: Sounds regular. LUNGS: Clear. ABDOMEN: Soft. There is mild left lower quadrant tenderness. No rebound or mass. EXTREMITIES: No edema or clubbing. LABORATORY DATA: WBC today is 17.64. Liver enzyme is mildly elevated. ALT of 86 on admission, is down to 68. CT scan as mentioned before with fatty liver. IMPRESSION 1. Acute sigmoid diverticulitis, presently is doing better. 2. Elevated liver function test, again is getting better too. Computed tomographic scan also show some fatty liver. 3. History of hypertension. 4. History of reflux. RECOMMENDATIONS: Continue on antibiotic at this point. Follow up clinically. Give her clear liquid diet. For now, the patient will need to have a colonoscopy as an outpatient in about 6 to 8 weeks. Job#: [id number] GE cc:Gaston HESTER MD
[2018-05-20 20:25] VITALS: BP 113/78
[2018-05-20 20:49] VITALS: BP 113/78
[2018-05-20 20:50] VITALS: BP 113/78
[2018-05-20] MEDS ORDERED: HYDROMORPHONE 2MG/ML 2 MG/ML ML IV PRN (23:45)
[2018-05-21] VITALS (8 sets, daily range): BP systolic 107–128; BP diastolic 63–82
[2018-05-21] MEDS: LEVOFLOXACIN 500MG/D5W 100ML IV SCH (02:10)
[2018-05-21] MEDS: METRONIDAZOLE 500MG/NS 100ML 100 ML IV SCH ×4 (03:30→20:20)
[2018-05-21 04:30] LABS: BASOPHILS # (AUTO) 0.1 (0.0-0.1); BASOPHILS % 0.6 % (0.0-1.0); EOSINOPHILS # (AUTO) 0.3 (0.0-0.4); EOSINOPHILS % 2.2 % (0.0-6.0); HEMATOCRIT 35.6 % (34.2-44.1); HEMOGLOBIN 12.2 g/dL (12.0-16.0); LYMPHOCYTES # (AUTO) 2.7 (1.0-3.2); LYMPHOCYTES % 20.7 % (18.0-39.1); MEAN CORPUSCULAR HEMOGLOBIN 32.4 pg (28-32); MEAN CORPUSCULAR HGB CONC 34.3 g/dL (31-35); MEAN CORPUSCULAR VOLUME 94.4 fL (81-99); MONOCYTES # (AUTO) 0.8 (0.2-0.8); NEUTROPHILS # (AUTO) 9.1 (2.1-6.9); NEUTROPHILS % 69.9 % (38.7-80.0); PLATELET COUNT 373 x10e3/uL (140-360); RED BLOOD COUNT 3.77 x10e6/uL (3.6-5.1); RED CELL DISTRIBUTION WIDTH 12.2 % (11.7-14.4)
[2018-05-21 04:56] LABS: ALANINE AMINOTRANSFERASE 72 IU/L (0-55); ALBUMIN 2.9 g/dL (3.5-5.0); ALKALINE PHOSPHATASE 61 IU/L (40-150); ANION GAP 13.7 mmol/L (8-16); BLOOD UREA NITROGEN 6 mg/dL (7-26); BUN/CREATININE RATIO 10 (6-25); CALCIUM 8.3 mg/dL (8.4-10.2); CARBON DIOXIDE 21 mmol/L (22-29); CHLORIDE 103 mmol/L (98-107); CREATININE, SERUM 0.58 mg/dL (0.57-1.11); EST GLOMERULAR FILTRATION RATE > 60 ML/MIN (60-); GLUCOSE 105 mg/dL (74-118); POTASSIUM 3.7 mmol/L (3.5-5.1); SODIUM 134 mmol/L (136-145)
[2018-05-21] MEDS: SODIUM CHLORIDE 0.9% 1000ML 1,000 ML IV SCH ×3 (07:42→23:42)
[2018-05-21] MEDS: DEXMETHYLPHENIDATE HCL 20 MG PO SCH (09:00)
[2018-05-21] MEDS: SERTRALINE HCL 50 MG TAB PO SCH (09:00)
[2018-05-21] MEDS: PANTOPRAZOLE 40 MG 10ML VIAL IV SCH (09:00)
[2018-05-21] MEDS ORDERED: OMEPRAZOLE 20 MG CAP PO SCH (09:00)
[2018-05-21] MEDS ORDERED: OYST-CAL-D 500MG TABLET PO NR (11:30)
[2018-05-21] MEDS ORDERED: SODIUM BICARBONATE 650 MG TAB PO NR (11:30)
--- NOTE | 2018-05-21 14:25 | Discharge Summary ---
CLINICAL HISTORY: This is a 48-year-old white woman admitted via the emergency room because of acute diverticulitis of 1 week duration. Please refer to my previous dictation concerning details of current illness, past medical history, personal and social history, family history, review of systems, physical examination and initial laboratory studies. HOSPITAL COURSE: The patient was treated with intravenous Levaquin and Flagyl. She was seen in consultation by Dr. Simone Ryder (GI). Her diet was advanced. White count dropped from 21,000 to 12,000. Urine culture showed gram-negative bacteria, but we felt this was covered by the ongoing antibiotics. Since she had no urine complaints, this was not felt to be a true urinary tract infection. Her abdominal pain improved. She was anxious for discharge. She will be discharged based on antibiotics provided by Dr. Ryder and will continue outpatient followup with Dr. Szymanski and Dr. Simone Ryder. DISCHARGE DIAGNOSES 1. Acute diverticulitis of 1 week duration. 2. Gram-negative bacillus in the urine culture. 3. Sepsis due to diverticulitis. 4. Mild hyponatremia and acidosis. 5. Blood culture was drawn after antibiotic was started and is still pending. 6. History of hypertension. 7. History of depression. 8. History of attention deficit/hyperactivity disorder. 9. History of reflux esophagitis. 10. Elevated liver functions. Defer to Dr. Simone Ryder. ENRICO WHITAKER MD Job#: [id number] cc:MD SIMONE HESTER MD
[2018-05-22] VITALS: BP 105/57
[2018-05-22] MEDS: SODIUM CHLORIDE 0.9% 1000ML 1,000 ML IV SCH ×2 (00:13→09:53)
[2018-05-22] MEDS: LEVOFLOXACIN 500MG/D5W 100ML IV SCH (02:59)
[2018-05-22] MEDS: METRONIDAZOLE 500MG/NS 100ML 100 ML IV SCH ×3 (03:47→15:00)
[2018-05-22 04:00] VITALS: BP 130/82
[2018-05-22 04:51] LABS: BASOPHILS # (AUTO) 0.1 (0.0-0.1); BASOPHILS % 0.6 % (0.0-1.0); EOSINOPHILS # (AUTO) 0.3 (0.0-0.4); EOSINOPHILS % 2.4 % (0.0-6.0); HEMATOCRIT 35.1 % (34.2-44.1); LYMPHOCYTES # (AUTO) 2.8 (1.0-3.2); LYMPHOCYTES % 22.2 % (18.0-39.1); MEAN CORPUSCULAR HEMOGLOBIN 32.3 pg (28-32); MEAN CORPUSCULAR HGB CONC 34.2 g/dL (31-35); MEAN CORPUSCULAR VOLUME 94.6 fL (81-99); MONOCYTES # (AUTO) 0.7 (0.2-0.8); MONOCYTES % 5.5 % (4.4-11.3); NEUTROPHILS # (AUTO) 8.8 (2.1-6.9); NEUTROPHILS % 68.6 % (38.7-80.0); PLATELET COUNT 387 x10e3/uL (140-360); RED BLOOD COUNT 3.71 x10e6/uL (3.6-5.1); RED CELL DISTRIBUTION WIDTH 12.2 % (11.7-14.4)
[2018-05-22 05:23] LABS: ALANINE AMINOTRANSFERASE 77 IU/L (0-55); ALKALINE PHOSPHATASE 51 IU/L (40-150); ANION GAP 11.8 mmol/L (8-16); BLOOD UREA NITROGEN 6 mg/dL (7-26); BUN/CREATININE RATIO 9 (6-25); CARBON DIOXIDE 22 mmol/L (22-29); CHLORIDE 108 mmol/L (98-107); CREATININE, SERUM 0.69 mg/dL (0.57-1.11); EST GLOMERULAR FILTRATION RATE > 60 ML/MIN (60-); GLUCOSE 101 mg/dL (74-118); POTASSIUM 3.8 mmol/L (3.5-5.1); SODIUM 138 mmol/L (136-145)
[2018-05-22 08:00] VITALS: BP 119/82
[2018-05-22] MEDS: DEXMETHYLPHENIDATE HCL 20 MG PO SCH (09:00)
[2018-05-22] MEDS: PANTOPRAZOLE 40 MG 10ML VIAL IV SCH (09:53)
[2018-05-22] MEDS: SERTRALINE HCL 50 MG TAB PO SCH (09:53)
[2018-05-22 12:00] VITALS: BP 119/71
[2018-05-22 16:00] VITALS: BP 127/85
[2018-05-22] MEDS ORDERED: FLAGYL250 MG PO (16:15)
[2018-05-22] MEDS ORDERED: LEVAQUIN500 MG PO (16:22)
== END 2018-05-22 16:45 | disposition home or self-care (01) | DRG 872 ==
LOC: ER 19:34 → ERHOLD 23:55 → MED/SURG2 05-20 18:30
PROVIDERS: ADMIT Internal Medicine Cardiovascular Disease; ATTEND Internal Medicine Cardiovascular Disease
DX: A41.50 Gram-negative sepsis, unspecified (principal); K57.92 Diverticulitis of intestine, part unspecified, without perforation or abscess without bleeding; E87.1 Hypo-osmolality and hyponatremia; E87.2 Acidosis; R65.20 Severe sepsis without septic shock; I10 Essential (primary) hypertension; F32.9 Major depressive disorder, single episode, unspecified; F90.9 Attention-deficit hyperactivity disorder, unspecified type; K20.9 Esophagitis, unspecified; R94.5 Abnormal results of liver function studies
CPT/HCPCS: 36415; 74177; 80053; 81001; 81025; 82948; 83690; 85025; 87040; 87086; 87186; 99284; J1956; J1980; J2405; J7030; Q9967

== ENCOUNTER → 2018-08-24 | Day surgery (SDC) | payer BC ==
[~2018-08-24] MED LIST: FENTANYL CITRATE/PF 100MCG/2 ML INJ ONE; FLAGYL250 MG PO; FOCALIN10 MG PO; GABAPENTIN100 MG PO; GLUCAGON FOR INJ 1 MG VIAL ONE; HYOSCYAMINE SULFATE 0.5 MG/ML INJ ONE; LEVAQUIN500 MG PO; LOSARTAN-HCTZ1 EAC1 PO; METOCLOPRAMIDE HCL 10 MG/2ML VIAL ONE; METOPROLOL SUCC50 MG PO; MIDAZOLAM HCL 2 MG/2 ML VIAL ONE; OMEPRAZOLE40 MG PO; PROPOFOL IV EMULSION 10 MG/ML 50 ML VIAL ONE; SERTRALINE HCL50 MG PO
--- NOTE | 2018-08-24 16:23 | Operative Report ---
DATE OF PROCEDURE: August 24, 2018 REFERRING PHYSICIAN: Dr. Preet Szymanski. PROCEDURES PERFORMED 1. Esophagogastroduodenoscopy with biopsies. 2. Colonoscopy with polypectomy. INDICATIONS FOR EGD: Acid reflux. INDICATIONS FOR COLONOSCOPY: History of diverticulitis. MEDICATION: Patient was done under MAC. Please see anesthesiologist's note. PROCEDURE: With patient in left lateral decubitus position, flexible fiberoptic Olympus gastroscope was introduced into the esophagus under direct visualization without any difficulty. There was some patchy erythema noted in distal esophagus. Short tongues of velvety red mucosa were noted to extend proximally from the GE junction and biopsies were obtained to rule out Maxwell's. The scope was then advanced with ease into the stomach, traversing a small sliding hiatal hernia. Mucosa overlying the antrum and the body revealed some patchy erythema and low-grade edema and biopsies were obtained and sent to stain for H. pylori. Multiple polyps, hyperplastic-appearing, were noted in the body of the stomach and some were partially excised with the cold biopsy forceps. The pylorus was of normal contour and shape, was intubated with ease, and the scope was advanced all the way to the 2nd portion of the duodenum. The scope was then withdrawn slowly and biopsies were obtained from the proximal 2nd portion and the duodenal bulb to rule out sprue. The scope was then withdrawn back into the stomach and retroflexed and mucosa overlying the fundus and the cardia appeared to be within normal limits. The scope was then straightened out and was subsequently withdrawn. Patient tolerated the procedure well. IMPRESSION 1. Distal esophagitis, mild. 2. Rule out Maxwell's esophagus. 3. Small sliding hiatal hernia. 4. Gastritis biopsied, biopsies sent to stain for Helicobacter pylori. 5. Gastric polyps, hyperplastic-appearing, body, some partially excised with the cold biopsy forceps. 6. Rule out sprue. PLAN: Follow up histology. Initiate Protonix 40 mg 1 p.o. q.a.m. a.c. Patient was then turned around and after adequate lubrication of the anal canal, flexible fiberoptic Olympus colonoscope was inserted into the rectum with ease and advanced all the way to the cecum. The scope was then withdrawn slowly and mucosa overlying the ascending colon as well as the cecum grossly appeared to be within normal limits. Diverticular disease was noted to involve the colon including the distal ascending colon. So other than for diverticular disease, the transverse and descending and sigmoid grossly appeared to be within normal limits. There was some retained stool in the left colon but visualization was fair. Approximately 6 polyps were removed per hot biopsy forceps in the rectum. The scope was then retroflexed into the distal rectum and small internal hemorrhoids were noted, none of which was actively bleeding. The scope was then straightened out and was subsequently withdrawn. Patient tolerated the procedure well. IMPRESSION 1. Pandiverticulosis. 2. Rectal polyps x6, removed per hot biopsy forceps. 3. Internal hemorrhoids, none actively bleeding. PLAN: Follow up histology. Initiate VSL #3 one p.o. daily. Patient might benefit from a followup colonoscopy in 3 years. Job#: [id number] [place] cc:PREET SZYMANSKI MD
== END | disposition home or self-care (01) ==
LOC: OR 06:55
PROVIDERS: ATTEND Internal Medicine Gastroenterology
DX: K21.0 Gastro-esophageal reflux disease with esophagitis (principal); I10 Essential (primary) hypertension; F90.9 Attention-deficit hyperactivity disorder, unspecified type; F41.9 Anxiety disorder, unspecified; B02.9 Zoster without complications; R12 Heartburn; K57.12 Diverticulitis of small intestine without perforation or abscess without bleeding; Z68.35 Body mass index [BMI] 35.0-35.9, adult; K44.9 Diaphragmatic hernia without obstruction or gangrene; K29.70 Gastritis, unspecified, without bleeding; K63.5 Polyp of colon; K62.1 Rectal polyp; K64.8 Other hemorrhoids
CPT/HCPCS: 43239; 45384; 81025; 93005; J1610; J1980; J2250; J2704; J2765